=== PATIENT | male | born 1965 | race Caucasian/White ===

== ENCOUNTER 2020-07-18 07:16 | Emergency (ER) | payer SELFPAY ==
[2020-07-18] MEDS ORDERED: NORVASC10 MG PO (07:58)
[2020-07-18] MEDS ORDERED: HYDROCODON-ACE1 EAC4 PO (07:58)
== END 2020-07-18 08:36 | disposition home or self-care (01) ==
LOC: ER1 07:16
DX: M54.5 Low back pain (principal); I10 Essential (primary) hypertension
CPT/HCPCS: 96372; 99283; J1100; J2270

== ENCOUNTER 2020-07-23 20:43 | Emergency (ER) | payer SELFPAY ==
[~2020-07-23 20:43] MED LIST: HYDROCODON-ACE1 EAC4 PO; NORVASC10 MG PO
[2020-07-23 21:17] LABS: HEMOGLOBIN 17.2 gm/dl (14.0-17.5); RED BLOOD COUNT 5.59 M/UL (4.20-5.50); WHITE BLOOD COUNT 11.8 K/UL (4.5-11.0)
[2020-07-23 21:30] LABS: BUN/CREATININE RATIO 18 (0-10)
== END 2020-07-24 00:54 | disposition short-term general hospital (02) ==
LOC: ER1 20:43
PROVIDERS: Emergency Medicine
DX: M54.5 Low back pain (principal); R20.2 Paresthesia of skin; I10 Essential (primary) hypertension; E78.5 Hyperlipidemia, unspecified; F17.200 Nicotine dependence, unspecified, uncomplicated
CPT/HCPCS: 72128; 72131; 80053; 80307; 81001; 85025; 85652; 86140; 96374; 96375; 96376; 99285; J1100; J1170; J2405

== ENCOUNTER 2021-08-17 11:48 | Emergency (ER) | payer BC | END 2021-08-17 12:17 | disposition left against medical advice (07) | LOC: ER1 11:48 | DX: Z53.21 Procedure and treatment not carried out due to patient leaving prior to being seen by health care provider (principal) ==

== ENCOUNTER 2021-08-23 11:42 | Emergency (ER) | payer BC ==
[2021-08-23 13:58] LABS: HEMOGLOBIN 17.4 gm/dl (14.0-17.5); RED BLOOD COUNT 5.69 M/UL (4.20-5.50); WHITE BLOOD COUNT 8.7 K/UL (4.5-11.0)
[2021-08-23 15:46] LABS: BUN/CREATININE RATIO 15 (0-10)
[2021-08-23] MEDS ORDERED: HYDROCHLOROTH12.5 MG PO (15:54)
== END 2021-08-23 16:33 | disposition home or self-care (01) ==
LOC: ER1 11:42
PROVIDERS: Physician Assistant
DX: I10 Essential (primary) hypertension (principal); F17.210 Nicotine dependence, cigarettes, uncomplicated
CPT/HCPCS: 80053; 85025; 99283

== ENCOUNTER → 2021-09-28 | Outpatient (CLI) | payer BC ==
[~2021-09-28] MED LIST changes: +HYDROCHLOROTH12.5 MG PO
== END ==
LOC: KOH-I 10:40
DX: M54.16 Radiculopathy, lumbar region (principal)
CPT/HCPCS: 72100

== ENCOUNTER 2021-10-01 19:40 | Emergency (ER) | payer SELFPAY ==
[2021-10-01] MEDS ORDERED: CEPHALEXIN500 M1 PO (23:47)
[2021-10-01] MEDS ORDERED: ENDOCET 5-3251 EACH PO (23:53)
== END 2021-10-02 00:30 | disposition home or self-care (01) ==
LOC: ER1 19:40
DX: S62.522A Displaced fracture of distal phalanx of left thumb, initial encounter for closed fracture (principal); S61.012A Laceration without foreign body of left thumb without damage to nail, initial encounter; F17.210 Nicotine dependence, cigarettes, uncomplicated; W23.0XXA Caught, crushed, jammed, or pinched between moving objects, initial encounter; Y92.89 Other specified places as the place of occurrence of the external cause; Y99.0 Civilian activity done for income or pay
CPT/HCPCS: 12001; 73140; 96374; 99283; J0690